=== PATIENT | male | born 1955 | race Caucasian/White ===

== ENCOUNTER 2023-04-09 09:28 | Outpatient (RCR) | payer MEDICARE, OTHER, SELFPAY | END 2023-04-09 23:59 | disposition home or self-care (01) | LOC: RPT 09:28 | PROVIDERS: ATTENDING PHYSICIAN Otolaryngology; PRIMARYCARE PHYSICIAN Family Medicine | DX: C32.9 Malignant neoplasm of larynx, unspecified (principal); R13.12 Dysphagia, oropharyngeal phase; C34.90 Malignant neoplasm of unspecified part of unspecified bronchus or lung; Z93.1 Gastrostomy status; Z93.0 Tracheostomy status; Z90.02 Acquired absence of larynx; Z85.46 Personal history of malignant neoplasm of prostate | CPT/HCPCS: 92526 ==

== ENCOUNTER 2023-05-06 09:32 | Outpatient (RCR) | payer MEDICARE, OTHER, SELFPAY | END 2023-05-06 23:59 | disposition home or self-care (01) | LOC: RPT 09:32 | PROVIDERS: ATTENDING PHYSICIAN Otolaryngology; PRIMARYCARE PHYSICIAN Family Medicine | DX: C32.9 Malignant neoplasm of larynx, unspecified (principal); R13.12 Dysphagia, oropharyngeal phase; C34.90 Malignant neoplasm of unspecified part of unspecified bronchus or lung; Z93.1 Gastrostomy status; Z93.0 Tracheostomy status; Z90.02 Acquired absence of larynx; Z85.46 Personal history of malignant neoplasm of prostate | CPT/HCPCS: 92526 ==

== ENCOUNTER → 2023-06-23 10:29 | Outpatient (REF) | payer MEDICARE, OTHER, SELFPAY ==
[2023-06-23 11:11] LABS: % Basophils 0.3 % (0-2); % Eosinophils 9.8 % (0-6); % Immature Granulocytes 0.2 % (0-0.5); % Lymphocytes 16.2 % (20.5-51.1); % Monocytes 7.3 % (1.7-9.3); % Neutrophils 66.2 % (42.2-75.2); Absolute Eosinophils 0.6 10^3/uL (0-0.7); Absolute Monocytes 0.5 10^3/uL (0.1-0.6); Absolute Neutrophils 4.2 10^3/uL (1.4-6.5); Hematocrit 41.8 % (39.0-52.0); Hemoglobin 14.7 g/dL (13.0-18.0); Mean Corp Hgb Conc. 35.2 g/dL (33.0-37.0); Mean Corpuscular Hgb 34.2 pg (27.0-31.0); Mean Corpuscular Volume 97.2 fL (80.0-94.0); Mean Platelet Volume 10.1 fL (7.4-10.4); Nucleated Red Blood Cells % 0 % (-); Platelet Count 149 10^3/uL (130-400); Red Cell Dist. Width 12.9 % (11.5-14.5); White Blood Cell Count 6.3 10^3/uL (4.8-10.8)
[2023-06-23 12:22] LABS: ALT (SGPT) 26 U/L (0-50); AST (SGOT) 32 U/L (17-59); Alkaline Phosphatase 51 U/L (38-126); Blood Urea Nitrogen 28 mg/dl (9-20); Carbon Dioxide 34 mmol/L (22-30); Chloride 99 mmol/L (98-107); Glucose 115 mg/dl (70-99); Potassium 4.3 mmol/L (3.5-5.1); Sodium 138 mmol/L (135-145); Total Bilirubin 0.4 mg/dl (0.2-1.3); Total Protein 5.2 g/dl (6.3-8.2); eGFR > 60.00
[2023-06-23 12:52] LABS: TSH Reflex To Free T4 2.65 uIU/ml (0.47-4.68)
== END ==
LOC: REG 10:29
PROVIDERS: ATTENDING PHYSICIAN Internal Medicine Hematology & Oncology; FAMILY PHYSICIAN Family Medicine
DX: C76.0 Malignant neoplasm of head, face and neck (principal); C77.0 Secondary and unspecified malignant neoplasm of lymph nodes of head, face and neck; E03.9 Hypothyroidism, unspecified
CPT/HCPCS: 36415; 80053; 84443; 85025

== ENCOUNTER 2023-07-02 09:46 | Outpatient (RCR) | payer MEDICARE, OTHER, SELFPAY | END 2023-07-02 23:59 | disposition home or self-care (01) | LOC: RPT 09:46 | PROVIDERS: ATTENDING PHYSICIAN Otolaryngology; PRIMARYCARE PHYSICIAN Family Medicine | DX: C32.9 Malignant neoplasm of larynx, unspecified (principal); R13.12 Dysphagia, oropharyngeal phase; C34.90 Malignant neoplasm of unspecified part of unspecified bronchus or lung; Z93.1 Gastrostomy status; Z93.0 Tracheostomy status; Z90.02 Acquired absence of larynx; Z85.46 Personal history of malignant neoplasm of prostate | CPT/HCPCS: 92526 ==

== ENCOUNTER 2023-07-30 10:57 | Outpatient (RCR) | payer MEDICARE, OTHER, SELFPAY | END 2023-07-30 23:59 | disposition home or self-care (01) | LOC: RPT 10:57 | PROVIDERS: ATTENDING PHYSICIAN Otolaryngology; PRIMARYCARE PHYSICIAN Family Medicine | DX: C32.9 Malignant neoplasm of larynx, unspecified (principal); R13.12 Dysphagia, oropharyngeal phase; C34.90 Malignant neoplasm of unspecified part of unspecified bronchus or lung; M62.81 Muscle weakness (generalized); Z93.1 Gastrostomy status; Z93.0 Tracheostomy status; Z90.02 Acquired absence of larynx; Z85.46 Personal history of malignant neoplasm of prostate | CPT/HCPCS: 36415; 80053; 84443; 85025; 92526 ==

== ENCOUNTER → 2023-08-03 12:37 | Outpatient (REF) | payer MEDICARE, OTHER, SELFPAY ==
[2023-08-03 13:22] LABS: % Basophils 0.3 % (0-2); % Eosinophils 12.5 % (0-6); % Immature Granulocytes 0.2 % (0-0.5); % Lymphocytes 15.2 % (20.5-51.1); % Monocytes 7.2 % (1.7-9.3); % Neutrophils 64.6 % (42.2-75.2); Absolute Eosinophils 0.8 10^3/uL (0-0.7); Absolute Monocytes 0.5 10^3/uL (0.1-0.6); Hematocrit 42.5 % (39.0-52.0); Hemoglobin 14.4 g/dL (13.0-18.0); Mean Corp Hgb Conc. 33.9 g/dL (33.0-37.0); Mean Corpuscular Hgb 33.4 pg (27.0-31.0); Mean Corpuscular Volume 98.6 fL (80.0-94.0); Mean Platelet Volume 10.4 fL (7.4-10.4); Nucleated Red Blood Cells % 0 % (-); Platelet Count 164 10^3/uL (130-400); Red Blood Cell Count 4.31 10^6/uL (4.70-6.10); Red Cell Dist. Width 12.8 % (11.5-14.5); White Blood Cell Count 6.3 10^3/uL (4.8-10.8)
[2023-08-03 14:12] LABS: ALT (SGPT) 27 U/L (0-50); AST (SGOT) 34 U/L (17-59); Albumin 3.3 g/dl (3.5-5.0); Alkaline Phosphatase 47 U/L (38-126); Blood Urea Nitrogen 28 mg/dl (9-20); Calcium 9.3 mg/dl (8.4-10.2); Carbon Dioxide 35 mmol/L (22-30); Chloride 99 mmol/L (98-107); Glucose 100 mg/dl (70-99); Sodium 138 mmol/L (135-145); Total Bilirubin 0.4 mg/dl (0.2-1.3); Total Protein 5.4 g/dl (6.3-8.2); eGFR > 60.00
[2023-08-03 14:18] LABS: TSH Reflex To Free T4 3.15 uIU/ml (0.47-4.68)
== END ==
LOC: REG 12:37
PROVIDERS: ATTENDING PHYSICIAN Internal Medicine Hematology & Oncology; FAMILY PHYSICIAN Family Medicine
DX: C76.0 Malignant neoplasm of head, face and neck (principal); C77.0 Secondary and unspecified malignant neoplasm of lymph nodes of head, face and neck; Z79.899 Other long term (current) drug therapy; E03.9 Hypothyroidism, unspecified
CPT/HCPCS: 36415; 80053; 84443; 85025

== ENCOUNTER 2023-08-04 03:10 | Emergency (ER) | payer MEDICARE, OTHER, SELFPAY ==
[2023-08-04 03:16] VITALS: BP 110/60
--- NOTE | 2023-08-04 06:18 | ED.GENMED ---
History of Present Illness
General
Chief Complaint: Catheter/Tube Problem
Source: patient, records and spouse
Exam Limitations: none
Time Seen by Provider: 08/04/23 06:06
Nursing documentation reviewed up to this point in time: agreed with
Travel History
Have you had any contact with someone who has COVID-19?: No
Do you have any symptoms of coronavirus? Fever > 100 degrees, chills, cough, shortness of breath, sore throat, loss of taste or smell, muscle aches, or headache?: No
History of Present Illness
History of Present Illness:
68-year-old male with history as documented including laryngeal cancer with chronic G-tube who presents for evaluation after his G-tube fell out. Patient states that he tried to do a feeding last night and when he removed his abdominal wrap G-tube
fell out. Last replaced 6 months ago but it was initially placed over 2 years ago. He presents with his 24 [place] G-tube�balloon appears to have ruptured. He has no complaints.
Past History
Past History
ED Past Medical History: Asthma, Cancer (Prostate) and Hypercholesterolemia
ED Past Surgical History: Urological
Social History
Tobacco: Former smoker
Alcohol: Other
Drug: None
Personal:
Living: with family
Employment: Not employed
Family History
Family History: Other
Review of Systems
Review of Systems
All Other Systems: ROS reviewed and negative except as documented in HPI and ROS
ABD/GI: Reports other (G-tube displaced)
Phy Exam
Physical Exam
Physical Exam:
General: Well appearing and non-toxic
HEENT: protecting airway
Neck: appears supple
CV: No evidence of cyanosis
Resp: No accessory muscle use
Abd: Non-distended, nontender, G-tube tract upper abdomen no leakage or drainage
Extremities: No deformities
Neuro: Alert
Psych: Normal affect
Skin: Intact
Scores
Heart Failure Risk
Heart Failure Risk Score: Not Applicable
Heart Score for Chest Pain Patients
STEMI patient?: Not applicable
Withdrawal Assessment of Alcohol
Withdrawal Assessment Completed?: Not applicable
Course
Orders/Labs/Results
Orders:
Orders
08/04/23 06:18
Tube Check [CR Cont Inj Eval Tube(by Rad)] Urgent
Comment:
Reason For Exam: g tube check
Vital Signs
Initial and Last Documented VS:
Initial Vital Signs
Temp Pulse Resp BP Pulse Ox
37.1 C 77 18 110/60 97
08/04/23 03:16 08/04/23 03:16 08/04/23 03:16 08/04/23 03:16 08/04/23 03:16
Last Documented Vital Signs
Temp Pulse Resp BP Pulse Ox
37.1 C 77 18 110/60 97
08/04/23 03:16 08/04/23 03:16 08/04/23 03:16 08/04/23 03:16 08/04/23 03:16
Procedures
Other
Indication for procedure:: G tube displaced
Procedure completed by: Manuelito Sullivan MD
Additional Procedure:
Consent: Verbal consent obtained.
Risks and benefits: risks, benefits and alternatives were discussed
Consent given by: patient
Patient understanding: patient states understanding of the procedure being performed
Patient consent: the patient understanding of the procedure matches consent given
Patient identity confirmed: arm band
Time out: Immediately prior to procedure a 'time out' was called to verify the correct patient, procedure, equipment, arch support technician and site/side marked as required.
Location details: abdomen
Procedure: using gentle pressure, new g-tube was placed with normal saline injected afterward to fill balloon port
Results: KUB with contrast confirms proper placement
Complication: Tolerated well without complication.
MDM/Problems Addressed
Differential Diagnosis Includes:
Displaced G-tube
MDM/Problems Addressed:
68-year-old male with chronic G-tube presents after it fell out last night. Replaced as documented procedure note without issue�24 [place] G-tube. X-ray for tube check confirms appropriate placement. Discharge.
Chronic conditions affecting care:
Laryngeal cancer with chronic G-tube�presents with G-tube displacement
*Radiology
Radiology exam reviewed: preliminary read by ED provider
*Pulse Oximetry
Patient hypoxic: no
*Critical Care Note
Total Time (30-74mins, 75-104mins- exclusive of procedures): Not Applicable
Data Reviewed
Review of Other/Old Records Reveals: Records
Source: patient and spouse
ED Attending Note
-
Portions of this chart may have been created with voice recognition software.� Occasional wrong word or��sound alike� substitutions may have occurred due to the inherent limitations of voice recognition software.
Discharge Plan
Departure
Patient Disposition: Home (Routine Discharge)
Date of Disposition: 08/04/23
Time of Disposition: 06:50
Patient with high blood pressure during this ER visit?: No
Discharge Problem:
Complication of gastrostomy tube
Instructions: How to Care for Your Gastrostomy Tube
Prescriptions:
No Action
atorvastatin 20 MG tablet
20 mg feeding tube QPM 30 Days Qty: 30 0RF
carvedilol 3.125 MG tablet
3.125 mg feeding tube BID 30 Days Qty: 60 0RF
aspirin 81 MG tablet,chewable
81 mg feeding tube DAILY 100 Days Qty: 100 0RF
Lactobac 2-Bifido 1-S. therm [High Potency Probiotic] 1 CAP capsule
1 cap feeding tube DAILY 30 Days Qty: 30 0RF
cetirizine [Zyrtec] 10 MG tablet
10 mg feeding tube DAILYPRN PRN (Reason: seasonal allergy)
acetaminophen 650 MG/20.3 ML solution
320 mg feeding tube TIDPRN PRN (Reason: pain)
Referrals:
Salvador Hernandez MD [Family Provider] - Follow up in 5-7 days
Activity Restrictions/Additional Instructions:
Thank you for visiting the Emergency Department at [facility].
1. Please schedule a follow up appointment as directed. Call first thing tomorrow morning to make an appointment.
2. If indicated, please take your medications as instructed and indicated on discharge paperwork.
3. If any of your symptoms do not improve, or persist, or become more severe within 6-12 hours, please return to the emergency department for further care.
4. Please return to the emergency department if you develop a headache, neck pain/stiffness, fever greater than 100.4F, chest pain, shortness of breath, persistent nausea, vomiting, slurred speech, difficulty walking, numbness/tingling, weakness,
signs of infection or any other symptoms that are worrisome to you.
Please call [phone] if you have any questions.
Interventions
Interventions:
*Risk Screen - Suicide Last Done: 08/04/23 03:16
*General Assessment Last Done: 08/04/23 03:16
*Neglect/Abuse Screening Last Done: 08/04/23 03:16
ED- Fall Risk Assessment Last Done: 08/04/23 05:04
*ED COVID-19 Vaccine History Last Done: 08/04/23 05:04
QW-Wztryz-Hlhkgjjgmo Assessment Last Done: 08/04/23 05:04
ED-Male Genitourinary Assessment Last Done: 08/04/23 05:05
Discharge Date and Time
Print Language: LITHUANIAN
== END 2023-08-04 06:50 | disposition home or self-care (01) ==
LOC: EMR 03:10
PROVIDERS: EMERGENCY PHYSICIAN Emergency Medicine; FAMILY PHYSICIAN Family Medicine
DX: K94.23 Gastrostomy malfunction (principal); C32.9 Malignant neoplasm of larynx, unspecified; Z87.891 Personal history of nicotine dependence
CPT/HCPCS: 99284; 49465

== ENCOUNTER → 2023-08-19 12:55 | Outpatient (REF) | payer MEDICARE, OTHER, SELFPAY | LOC: RAD 12:55 | PROVIDERS: ATTENDING PHYSICIAN Internal Medicine Hematology & Oncology; FAMILY PHYSICIAN Family Medicine | DX: C76.0 Malignant neoplasm of head, face and neck (principal) | CPT/HCPCS: 71260; 74177; Q9967 ==

== ENCOUNTER → 2023-08-24 11:00 | Outpatient (REF) | payer MEDICARE, OTHER, SELFPAY ==
[2023-08-24 11:57] LABS: % Basophils 0.3 % (0-2); % Eosinophils 8.7 % (0-6); % Immature Granulocytes 0.1 % (0-0.5); % Lymphocytes 12.6 % (20.5-51.1); % Monocytes 6.3 % (1.7-9.3); Absolute Eosinophils 0.6 10^3/uL (0-0.7); Absolute Lymphocytes 0.9 10^3/uL (1.2-3.4); Absolute Monocytes 0.5 10^3/uL (0.1-0.6); Absolute Neutrophils 5.2 10^3/uL (1.4-6.5); Hematocrit 43.6 % (39.0-52.0); Hemoglobin 15.1 g/dL (13.0-18.0); Mean Corp Hgb Conc. 34.6 g/dL (33.0-37.0); Mean Corpuscular Volume 98.2 fL (80.0-94.0); Mean Platelet Volume 10.6 fL (7.4-10.4); Nucleated Red Blood Cells % 0 % (-); Platelet Count 168 10^3/uL (130-400); Red Blood Cell Count 4.44 10^6/uL (4.70-6.10); White Blood Cell Count 7.2 10^3/uL (4.8-10.8)
[2023-08-24 14:29] LABS: ALT (SGPT) 28 U/L (0-50); AST (SGOT) 36 U/L (17-59); Albumin 3.5 g/dl (3.5-5.0); Alkaline Phosphatase 62 U/L (38-126); Blood Urea Nitrogen 31 mg/dl (9-20); Calcium 9.2 mg/dl (8.4-10.2); Carbon Dioxide 32 mmol/L (22-30); Chloride 100 mmol/L (98-107); Glucose 91 mg/dl (70-99); Potassium 3.9 mmol/L (3.5-5.1); Sodium 139 mmol/L (135-145); Total Bilirubin 0.4 mg/dl (0.2-1.3); Total Protein 5.6 g/dl (6.3-8.2); eGFR > 60.00
[2023-08-24 14:48] LABS: TSH Reflex To Free T4 3.67 uIU/ml (0.47-4.68)
== END ==
LOC: REG 11:00
PROVIDERS: ATTENDING PHYSICIAN Internal Medicine Hematology & Oncology; FAMILY PHYSICIAN Family Medicine
DX: C76.0 Malignant neoplasm of head, face and neck (principal); C77.0 Secondary and unspecified malignant neoplasm of lymph nodes of head, face and neck; Z79.899 Other long term (current) drug therapy; E03.9 Hypothyroidism, unspecified
CPT/HCPCS: 36415; 80053; 84443; 85025

== ENCOUNTER 2023-08-27 11:53 | Outpatient (RCR) | payer MEDICARE, OTHER, SELFPAY | END 2023-08-27 23:59 | disposition home or self-care (01) | LOC: RPT 11:53 | PROVIDERS: ATTENDING PHYSICIAN Otolaryngology; PRIMARYCARE PHYSICIAN Family Medicine | DX: C32.9 Malignant neoplasm of larynx, unspecified (principal); R13.12 Dysphagia, oropharyngeal phase; C34.90 Malignant neoplasm of unspecified part of unspecified bronchus or lung; M62.81 Muscle weakness (generalized); Z93.1 Gastrostomy status; Z93.0 Tracheostomy status; Z90.02 Acquired absence of larynx; Z85.46 Personal history of malignant neoplasm of prostate | CPT/HCPCS: 92526 ==

== ENCOUNTER 2023-10-01 11:58 | Outpatient (RCR) | payer MEDICARE, OTHER, SELFPAY | END 2023-10-01 23:59 | disposition home or self-care (01) | LOC: RPT 11:58 | PROVIDERS: ATTENDING PHYSICIAN Otolaryngology; PRIMARYCARE PHYSICIAN Family Medicine | DX: C32.9 Malignant neoplasm of larynx, unspecified (principal); R13.12 Dysphagia, oropharyngeal phase; C34.90 Malignant neoplasm of unspecified part of unspecified bronchus or lung; M62.81 Muscle weakness (generalized); Z93.1 Gastrostomy status; Z93.0 Tracheostomy status; Z90.02 Acquired absence of larynx; Z85.46 Personal history of malignant neoplasm of prostate | CPT/HCPCS: 80053; 85025; 86376; 86800; 92526 ==

== ENCOUNTER → 2023-10-05 09:56 | Outpatient (REF) | payer MEDICARE, OTHER, SELFPAY ==
[2023-10-05 11:11] LABS: % Basophils 0.3 % (0-2); % Eosinophils 8.5 % (0-6); % Immature Granulocytes 0.2 % (0-0.5); % Lymphocytes 14.5 % (20.5-51.1); % Monocytes 6.2 % (1.7-9.3); % Neutrophils 70.3 % (42.2-75.2); Absolute Eosinophils 0.6 10^3/uL (0-0.7); Absolute Monocytes 0.4 10^3/uL (0.1-0.6); Absolute Neutrophils 4.6 10^3/uL (1.4-6.5); Hemoglobin 15.5 g/dL (13.0-18.0); Mean Corp Hgb Conc. 34.4 g/dL (33.0-37.0); Mean Corpuscular Hgb 34.1 pg (27.0-31.0); Mean Corpuscular Volume 98.9 fL (80.0-94.0); Mean Platelet Volume 10.2 fL (7.4-10.4); Nucleated Red Blood Cells % 0 % (-); Platelet Count 150 10^3/uL (130-400); Red Blood Cell Count 4.55 10^6/uL (4.70-6.10); Red Cell Dist. Width 12.3 % (11.5-14.5); White Blood Cell Count 6.6 10^3/uL (4.8-10.8)
[2023-10-05 11:52] LABS: ALT (SGPT) 23 U/L (0-50); AST (SGOT) 32 U/L (17-59); Albumin 3.6 g/dl (3.5-5.0); Alkaline Phosphatase 51 U/L (38-126); Blood Urea Nitrogen 25 mg/dl (9-20); Calcium 9.5 mg/dl (8.4-10.2); Carbon Dioxide 33 mmol/L (22-30); Chloride 102 mmol/L (98-107); Glucose 89 mg/dl (70-99); Potassium 4.9 mmol/L (3.5-5.1); Sodium 139 mmol/L (135-145); Total Bilirubin 0.4 mg/dl (0.2-1.3); Total Protein 5.7 g/dl (6.3-8.2); eGFR > 60.00
[2023-10-05 12:21] LABS: TSH Reflex To Free T4 2.88 uIU/ml (0.47-4.68)
== END ==
LOC: REG 09:56
PROVIDERS: ATTENDING PHYSICIAN Internal Medicine Hematology & Oncology
DX: C76.0 Malignant neoplasm of head, face and neck (principal); C77.0 Secondary and unspecified malignant neoplasm of lymph nodes of head, face and neck; Z79.899 Other long term (current) drug therapy; E03.9 Hypothyroidism, unspecified
CPT/HCPCS: 36415; 80053; 84443; 85025

== ENCOUNTER → 2023-10-26 09:19 | Outpatient (REF) | payer MEDICARE, OTHER, SELFPAY ==
[2023-10-26 10:10] LABS: % Basophils 0.3 % (0-2); % Eosinophils 10.1 % (0-6); % Immature Granulocytes 0.2 % (0-0.5); % Lymphocytes 13.6 % (20.5-51.1); % Monocytes 7.3 % (1.7-9.3); % Neutrophils 68.5 % (42.2-75.2); Absolute Eosinophils 0.7 10^3/uL (0-0.7); Absolute Lymphocytes 0.9 10^3/uL (1.2-3.4); Absolute Monocytes 0.5 10^3/uL (0.1-0.6); Absolute Neutrophils 4.5 10^3/uL (1.4-6.5); Hematocrit 42.8 % (39.0-52.0); Hemoglobin 14.8 g/dL (13.0-18.0); Mean Corp Hgb Conc. 34.6 g/dL (33.0-37.0); Mean Corpuscular Hgb 32.8 pg (27.0-31.0); Mean Corpuscular Volume 94.9 fL (80.0-94.0); Nucleated Red Blood Cells % 0 % (-); Platelet Count 161 10^3/uL (130-400); Red Blood Cell Count 4.51 10^6/uL (4.70-6.10); Red Cell Dist. Width 12.3 % (11.5-14.5); White Blood Cell Count 6.5 10^3/uL (4.8-10.8)
[2023-10-26 10:44] LABS: ALT (SGPT) 21 U/L (0-50); AST (SGOT) 32 U/L (17-59); Albumin 3.5 g/dl (3.5-5.0); Alkaline Phosphatase 53 U/L (38-126); Blood Urea Nitrogen 29 mg/dl (9-20); Calcium 9.5 mg/dl (8.4-10.2); Carbon Dioxide 33 mmol/L (22-30); Chloride 102 mmol/L (98-107); Glucose 71 mg/dl (70-99); Potassium 5.1 mmol/L (3.5-5.1); Sodium 141 mmol/L (135-145); Total Bilirubin 0.4 mg/dl (0.2-1.3); Total Protein 5.5 g/dl (6.3-8.2); eGFR > 60.00
[2023-10-26 11:11] LABS: TSH Reflex To Free T4 2.19 uIU/ml (0.47-4.68)
== END ==
LOC: REG 09:19
PROVIDERS: ATTENDING PHYSICIAN Internal Medicine Hematology & Oncology; FAMILY PHYSICIAN Family Medicine
DX: C76.0 Malignant neoplasm of head, face and neck (principal); C77.0 Secondary and unspecified malignant neoplasm of lymph nodes of head, face and neck; Z79.899 Other long term (current) drug therapy; E03.9 Hypothyroidism, unspecified
CPT/HCPCS: 36415; 80053; 84443; 85025

== ENCOUNTER 2023-10-28 12:17 | Outpatient (RCR) | payer MEDICARE, OTHER, SELFPAY | END 2023-10-28 23:59 | disposition home or self-care (01) | LOC: RPT 12:17 | PROVIDERS: ATTENDING PHYSICIAN Otolaryngology; PRIMARYCARE PHYSICIAN Family Medicine | DX: C32.9 Malignant neoplasm of larynx, unspecified (principal); R13.12 Dysphagia, oropharyngeal phase; C34.90 Malignant neoplasm of unspecified part of unspecified bronchus or lung; M62.81 Muscle weakness (generalized); Z93.1 Gastrostomy status; Z93.0 Tracheostomy status; Z90.02 Acquired absence of larynx; Z85.46 Personal history of malignant neoplasm of prostate | CPT/HCPCS: 92526 ==

== ENCOUNTER → 2023-11-13 09:01 | Outpatient (REF) | payer MEDICARE, OTHER, SELFPAY ==
[2023-11-13 09:54] LABS: % Basophils 0.4 % (0-2); % Eosinophils 11.1 % (0-6); % Immature Granulocytes 0.2 % (0-0.5); % Lymphocytes 14.7 % (20.5-51.1); % Monocytes 7.7 % (1.7-9.3); % Neutrophils 65.9 % (42.2-75.2); Absolute Eosinophils 0.6 10^3/uL (0-0.7); Absolute Lymphocytes 0.8 10^3/uL (1.2-3.4); Absolute Monocytes 0.4 10^3/uL (0.1-0.6); Absolute Neutrophils 3.8 10^3/uL (1.4-6.5); Hematocrit 43.6 % (39.0-52.0); Hemoglobin 15.2 g/dL (13.0-18.0); Mean Corp Hgb Conc. 34.9 g/dL (33.0-37.0); Mean Corpuscular Hgb 33.4 pg (27.0-31.0); Mean Corpuscular Volume 95.8 fL (80.0-94.0); Nucleated Red Blood Cells % 0 % (-); Platelet Count 154 10^3/uL (130-400); Red Blood Cell Count 4.55 10^6/uL (4.70-6.10); Red Cell Dist. Width 12.6 % (11.5-14.5); White Blood Cell Count 5.7 10^3/uL (4.8-10.8)
[2023-11-13 10:33] LABS: ALT (SGPT) 24 U/L (0-50); AST (SGOT) 38 U/L (17-59); Albumin 3.5 g/dl (3.5-5.0); Alkaline Phosphatase 49 U/L (38-126); Blood Urea Nitrogen 27 mg/dl (9-20); Calcium 9.4 mg/dl (8.4-10.2); Carbon Dioxide 34 mmol/L (22-30); Chloride 102 mmol/L (98-107); Glucose 71 mg/dl (70-99); Potassium 5.2 mmol/L (3.5-5.1); Sodium 140 mmol/L (135-145); Total Bilirubin 0.6 mg/dl (0.2-1.3); Total Protein 5.7 g/dl (6.3-8.2); eGFR > 60.00
[2023-11-13 11:01] LABS: TSH Reflex To Free T4 2.93 uIU/ml (0.47-4.68)
== END ==
LOC: REG 09:01
PROVIDERS: ATTENDING PHYSICIAN Internal Medicine Hematology & Oncology; FAMILY PHYSICIAN Family Medicine
DX: C76.0 Malignant neoplasm of head, face and neck (principal); C77.0 Secondary and unspecified malignant neoplasm of lymph nodes of head, face and neck; Z79.899 Other long term (current) drug therapy; E03.9 Hypothyroidism, unspecified
CPT/HCPCS: 36415; 80053; 84443; 85025

== ENCOUNTER 2023-11-17 12:00 | Outpatient (RCR) | payer MEDICARE, OTHER, SELFPAY | END 2023-11-17 23:59 | disposition home or self-care (01) | LOC: RPT 12:00 | PROVIDERS: ATTENDING PHYSICIAN Otolaryngology; PRIMARYCARE PHYSICIAN Family Medicine | DX: C32.9 Malignant neoplasm of larynx, unspecified (principal); R13.12 Dysphagia, oropharyngeal phase; C34.90 Malignant neoplasm of unspecified part of unspecified bronchus or lung; M62.81 Muscle weakness (generalized); Z93.1 Gastrostomy status; Z93.0 Tracheostomy status; Z90.02 Acquired absence of larynx; Z85.46 Personal history of malignant neoplasm of prostate | CPT/HCPCS: 92526 ==

== ENCOUNTER → 2023-12-18 09:46 | Outpatient (REF) | payer MEDICARE, OTHER, SELFPAY ==
[2023-12-18 10:28] LABS: % Basophils 0.2 % (0-2); % Eosinophils 8.4 % (0-6); % Immature Granulocytes 0.2 % (0-0.5); % Lymphocytes 16.5 % (20.5-51.1); % Monocytes 8.1 % (1.7-9.3); % Neutrophils 66.6 % (42.2-75.2); Absolute Eosinophils 0.4 10^3/uL (0-0.7); Absolute Lymphocytes 0.8 10^3/uL (1.2-3.4); Absolute Monocytes 0.4 10^3/uL (0.1-0.6); Absolute Neutrophils 3.3 10^3/uL (1.4-6.5); Hematocrit 41.3 % (39.0-52.0); Hemoglobin 14.9 g/dL (13.0-18.0); Mean Corp Hgb Conc. 36.1 g/dL (33.0-37.0); Mean Corpuscular Hgb 34.3 pg (27.0-31.0); Mean Corpuscular Volume 95.2 fL (80.0-94.0); Mean Platelet Volume 9.2 fL (7.4-10.4); Nucleated Red Blood Cells % 0 % (-); Platelet Count 155 10^3/uL (130-400); Red Blood Cell Count 4.34 10^6/uL (4.70-6.10); Red Cell Dist. Width 12.4 % (11.5-14.5); White Blood Cell Count 4.9 10^3/uL (4.8-10.8)
[2023-12-18 11:29] LABS: ALT (SGPT) 19 U/L (0-50); AST (SGOT) 34 U/L (17-59); Albumin 3.5 g/dl (3.5-5.0); Alkaline Phosphatase 53 U/L (38-126); Blood Urea Nitrogen 18 mg/dl (9-20); Calcium 9.3 mg/dl (8.4-10.2); Carbon Dioxide 31 mmol/L (22-30); Chloride 103 mmol/L (98-107); Glucose 76 mg/dl (70-99); Potassium 3.8 mmol/L (3.5-5.1); Sodium 137 mmol/L (135-145); Total Bilirubin 0.6 mg/dl (0.2-1.3); Total Protein 5.6 g/dl (6.3-8.2); eGFR > 60.00
[2023-12-18 11:56] LABS: TSH Reflex To Free T4 3.25 uIU/ml (0.47-4.68)
== END ==
LOC: REG 09:46
PROVIDERS: ATTENDING PHYSICIAN Internal Medicine Hematology & Oncology; FAMILY PHYSICIAN Family Medicine
DX: C76.0 Malignant neoplasm of head, face and neck (principal); C77.0 Secondary and unspecified malignant neoplasm of lymph nodes of head, face and neck; Z79.899 Other long term (current) drug therapy; E03.9 Hypothyroidism, unspecified
CPT/HCPCS: 36415; 80053; 84443; 85025

== ENCOUNTER 2023-12-22 15:10 | Outpatient (RCR) | payer MEDICARE, OTHER, SELFPAY | END 2023-12-22 23:59 | disposition home or self-care (01) | LOC: RPT 15:10 | PROVIDERS: ATTENDING PHYSICIAN Otolaryngology; PRIMARYCARE PHYSICIAN Family Medicine | DX: C32.9 Malignant neoplasm of larynx, unspecified (principal); R13.12 Dysphagia, oropharyngeal phase; C34.90 Malignant neoplasm of unspecified part of unspecified bronchus or lung; M62.81 Muscle weakness (generalized); Z93.1 Gastrostomy status; Z93.0 Tracheostomy status; Z90.02 Acquired absence of larynx; Z85.46 Personal history of malignant neoplasm of prostate | CPT/HCPCS: 92526 ==

== ENCOUNTER → 2024-01-11 10:50 | Outpatient (REF) | payer MEDICARE, OTHER, SELFPAY ==
[2024-01-11 11:49] LABS: % Basophils 0.3 % (0-2); % Eosinophils 5.7 % (0-6); % Immature Granulocytes 0.3 % (0-0.5); % Lymphocytes 11.1 % (20.5-51.1); % Monocytes 8.2 % (1.7-9.3); % Neutrophils 74.4 % (42.2-75.2); Absolute Eosinophils 0.4 10^3/uL (0-0.7); Absolute Lymphocytes 0.7 10^3/uL (1.2-3.4); Absolute Monocytes 0.6 10^3/uL (0.1-0.6); Hematocrit 41.3 % (39.0-52.0); Hemoglobin 14.1 g/dL (13.0-18.0); Mean Corp Hgb Conc. 34.1 g/dL (33.0-37.0); Mean Corpuscular Hgb 32.1 pg (27.0-31.0); Mean Corpuscular Volume 94.1 fL (80.0-94.0); Nucleated Red Blood Cells % 0 % (-); Platelet Count 184 10^3/uL (130-400); Red Blood Cell Count 4.39 10^6/uL (4.70-6.10); Red Cell Dist. Width 12.4 % (11.5-14.5); White Blood Cell Count 6.7 10^3/uL (4.8-10.8)
[2024-01-11 12:13] LABS: ALT (SGPT) 18 U/L (0-50); AST (SGOT) 28 U/L (17-59); Albumin 3.6 g/dl (3.5-5.0); Alkaline Phosphatase 56 U/L (38-126); Blood Urea Nitrogen 27 mg/dl (9-20); Calcium 9.6 mg/dl (8.4-10.2); Carbon Dioxide 31 mmol/L (22-30); Chloride 101 mmol/L (98-107); Glucose 91 mg/dl (70-99); Potassium 4.5 mmol/L (3.5-5.1); Sodium 141 mmol/L (135-145); Total Bilirubin 0.4 mg/dl (0.2-1.3); Total Protein 5.5 g/dl (6.3-8.2); eGFR > 60.00
[2024-01-11 12:44] LABS: TSH Reflex To Free T4 2.82 uIU/ml (0.47-4.68)
== END ==
LOC: REG 10:50
PROVIDERS: ATTENDING PHYSICIAN Internal Medicine Hematology & Oncology; FAMILY PHYSICIAN Family Medicine
DX: C76.0 Malignant neoplasm of head, face and neck (principal); C77.0 Secondary and unspecified malignant neoplasm of lymph nodes of head, face and neck; Z79.899 Other long term (current) drug therapy; E03.9 Hypothyroidism, unspecified
CPT/HCPCS: 36415; 80053; 84443; 85025

== ENCOUNTER 2024-01-19 11:59 | Outpatient (RCR) | payer MEDICARE, OTHER, SELFPAY | END 2024-01-19 23:59 | disposition home or self-care (01) | LOC: RPT 11:59 | PROVIDERS: ATTENDING PHYSICIAN Otolaryngology; PRIMARYCARE PHYSICIAN Family Medicine | DX: C32.9 Malignant neoplasm of larynx, unspecified (principal); R13.12 Dysphagia, oropharyngeal phase; C34.90 Malignant neoplasm of unspecified part of unspecified bronchus or lung; M62.81 Muscle weakness (generalized); Z93.1 Gastrostomy status; Z93.0 Tracheostomy status; Z90.02 Acquired absence of larynx; Z85.46 Personal history of malignant neoplasm of prostate | CPT/HCPCS: 92526 ==

== ENCOUNTER → 2024-02-01 10:02 | Outpatient (REF) | payer MEDICARE, OTHER, SELFPAY ==
[2024-02-01 10:47] LABS: % Basophils 0.6 % (0-2); % Eosinophils 12.3 % (0-6); % Immature Granulocytes 0.2 % (0-0.5); % Lymphocytes 14.9 % (20.5-51.1); % Monocytes 6.2 % (1.7-9.3); % Neutrophils 65.8 % (42.2-75.2); Absolute Eosinophils 0.7 10^3/uL (0-0.7); Absolute Lymphocytes 0.8 10^3/uL (1.2-3.4); Absolute Monocytes 0.3 10^3/uL (0.1-0.6); Absolute Neutrophils 3.5 10^3/uL (1.4-6.5); Hemoglobin 14.7 g/dL (13.0-18.0); Mean Corp Hgb Conc. 34.2 g/dL (33.0-37.0); Mean Corpuscular Hgb 32.3 pg (27.0-31.0); Mean Corpuscular Volume 94.5 fL (80.0-94.0); Mean Platelet Volume 9.9 fL (7.4-10.4); Nucleated Red Blood Cells % 0 % (-); Platelet Count 194 10^3/uL (130-400); Red Blood Cell Count 4.55 10^6/uL (4.70-6.10); Red Cell Dist. Width 13.2 % (11.5-14.5); White Blood Cell Count 5.3 10^3/uL (4.8-10.8)
[2024-02-01 11:12] LABS: ALT (SGPT) 21 U/L (0-50); AST (SGOT) 35 U/L (17-59); Albumin 3.7 g/dl (3.5-5.0); Alkaline Phosphatase 59 U/L (38-126); Blood Urea Nitrogen 23 mg/dl (9-20); Calcium 9.5 mg/dl (8.4-10.2); Carbon Dioxide 33 mmol/L (22-30); Chloride 102 mmol/L (98-107); Glucose 85 mg/dl (70-99); Potassium 4.7 mmol/L (3.5-5.1); Sodium 140 mmol/L (135-145); Total Bilirubin 0.5 mg/dl (0.2-1.3); Total Protein 5.7 g/dl (6.3-8.2); eGFR > 60.00
[2024-02-01 11:37] LABS: TSH Reflex To Free T4 2.71 uIU/ml (0.47-4.68)
== END ==
LOC: RAD 10:02
PROVIDERS: ATTENDING PHYSICIAN Internal Medicine Hematology & Oncology; FAMILY PHYSICIAN Family Medicine
DX: C76.0 Malignant neoplasm of head, face and neck (principal); C77.0 Secondary and unspecified malignant neoplasm of lymph nodes of head, face and neck; Z79.899 Other long term (current) drug therapy; E03.9 Hypothyroidism, unspecified
CPT/HCPCS: 36415; 80053; 84443; 85025

== ENCOUNTER → 2024-02-10 07:51 | Outpatient (REF) | payer MEDICARE, OTHER, SELFPAY | LOC: RAD 07:51 | PROVIDERS: ATTENDING PHYSICIAN Internal Medicine Hematology & Oncology; FAMILY PHYSICIAN Family Medicine | DX: C76.0 Malignant neoplasm of head, face and neck (principal); C77.0 Secondary and unspecified malignant neoplasm of lymph nodes of head, face and neck | CPT/HCPCS: 71260; 74177; Q9967 ==

== ENCOUNTER 2024-02-16 12:00 | Outpatient (RCR) | payer MEDICARE, OTHER, SELFPAY | END 2024-02-16 23:59 | disposition home or self-care (01) | LOC: RPT 12:00 | PROVIDERS: ATTENDING PHYSICIAN Otolaryngology; PRIMARYCARE PHYSICIAN Family Medicine | DX: C32.9 Malignant neoplasm of larynx, unspecified (principal); R13.12 Dysphagia, oropharyngeal phase; C34.90 Malignant neoplasm of unspecified part of unspecified bronchus or lung; M62.81 Muscle weakness (generalized); Z93.1 Gastrostomy status; Z93.0 Tracheostomy status; Z90.02 Acquired absence of larynx; Z85.46 Personal history of malignant neoplasm of prostate | CPT/HCPCS: 92526 ==

== ENCOUNTER → 2024-02-17 06:19 | Day surgery (SDC) | payer MEDICARE, OTHER, SELFPAY | LOC: GI 06:19 | PROVIDERS: ATTENDING PHYSICIAN Specialist | DX: Z12.11 Encounter for screening for malignant neoplasm of colon (principal); D12.0 Benign neoplasm of cecum; D12.2 Benign neoplasm of ascending colon; D12.3 Benign neoplasm of transverse colon; K56.2 Volvulus; Z86.0101 Personal history of adenomatous and serrated colon polyps | CPT/HCPCS: 45385; 88305 ==

== ENCOUNTER → 2024-02-22 14:05 | Outpatient (REF) | payer MEDICARE, OTHER, SELFPAY ==
[2024-02-22 15:23] LABS: % Basophils 0.3 % (0-2); % Eosinophils 9.2 % (0-6); % Immature Granulocytes 0.3 % (0-0.5); % Lymphocytes 18.7 % (20.5-51.1); % Monocytes 7.5 % (1.7-9.3); Absolute Eosinophils 0.5 10^3/uL (0-0.7); Absolute Lymphocytes 1.1 10^3/uL (1.2-3.4); Absolute Monocytes 0.4 10^3/uL (0.1-0.6); Absolute Neutrophils 3.7 10^3/uL (1.4-6.5); Hematocrit 43.9 % (39.0-52.0); Hemoglobin 15.2 g/dL (13.0-18.0); Mean Corp Hgb Conc. 34.6 g/dL (33.0-37.0); Mean Corpuscular Hgb 33.7 pg (27.0-31.0); Mean Corpuscular Volume 97.3 fL (80.0-94.0); Mean Platelet Volume 10.2 fL (7.4-10.4); Nucleated Red Blood Cells % 0 % (-); Platelet Count 183 10^3/uL (130-400); Red Blood Cell Count 4.51 10^6/uL (4.70-6.10); Red Cell Dist. Width 13.1 % (11.5-14.5); White Blood Cell Count 5.7 10^3/uL (4.8-10.8)
[2024-02-22 15:42] LABS: ALT (SGPT) 21 U/L (0-50); AST (SGOT) 32 U/L (17-59); Albumin 3.9 g/dl (3.5-5.0); Alkaline Phosphatase 45 U/L (38-126); Blood Urea Nitrogen 33 mg/dl (9-20); Calcium 9.6 mg/dl (8.4-10.2); Carbon Dioxide 33 mmol/L (22-30); Chloride 99 mmol/L (98-107); Glucose 83 mg/dl (70-99); Potassium 5.3 mmol/L (3.5-5.1); Sodium 140 mmol/L (135-145); Total Bilirubin 0.3 mg/dl (0.2-1.3); Total Protein 6.1 g/dl (6.3-8.2); eGFR > 60.00
[2024-02-22 16:13] LABS: TSH Reflex To Free T4 2.98 uIU/ml (0.47-4.68)
== END ==
LOC: REG 14:05
PROVIDERS: ATTENDING PHYSICIAN Internal Medicine Hematology & Oncology; FAMILY PHYSICIAN Family Medicine
DX: C76.0 Malignant neoplasm of head, face and neck (principal); C77.0 Secondary and unspecified malignant neoplasm of lymph nodes of head, face and neck; Z79.899 Other long term (current) drug therapy; E03.9 Hypothyroidism, unspecified
CPT/HCPCS: 36415; 80053; 84443; 85025

== ENCOUNTER → 2024-03-16 16:07 | Outpatient (REF) | payer MEDICARE, OTHER, SELFPAY ==
[2024-03-16 10:14] LABS: % Basophils 0.3 % (0-2); % Eosinophils 7.4 % (0-6); % Immature Granulocytes 0.1 % (0-0.5); % Lymphocytes 10.4 % (20.5-51.1); % Monocytes 7.5 % (1.7-9.3); % Neutrophils 74.3 % (42.2-75.2); Absolute Eosinophils 0.5 10^3/uL (0-0.7); Absolute Lymphocytes 0.8 10^3/uL (1.2-3.4); Absolute Monocytes 0.6 10^3/uL (0.1-0.6); Absolute Neutrophils 5.4 10^3/uL (1.4-6.5); Hematocrit 42.5 % (39.0-52.0); Hemoglobin 14.4 g/dL (13.0-18.0); Mean Corp Hgb Conc. 33.9 g/dL (33.0-37.0); Mean Corpuscular Volume 97.5 fL (80.0-94.0); Mean Platelet Volume 9.9 fL (7.4-10.4); Platelet Count 168 10^3/uL (130-400); Red Blood Cell Count 4.36 10^6/uL (4.70-6.10); Red Cell Dist. Width 13.2 % (11.5-14.5); White Blood Cell Count 7.3 10^3/uL (4.8-10.8)
[2024-03-16 10:52] LABS: ALT (SGPT) 22 U/L (0-50); AST (SGOT) 31 U/L (17-59); Albumin 3.2 g/dl (3.5-5.0); Alkaline Phosphatase 47 U/L (38-126); Blood Urea Nitrogen 25 mg/dl (9-20); Calcium 9.1 mg/dl (8.4-10.2); Carbon Dioxide 30 mmol/L (22-30); Chloride 103 mmol/L (98-107); Glucose 99 mg/dl (70-99); Potassium 4.2 mmol/L (3.5-5.1); Sodium 142 mmol/L (135-145); Total Bilirubin 0.3 mg/dl (0.2-1.3); Total Protein 5.2 g/dl (6.3-8.2); eGFR > 60.00
[2024-03-16 11:12] LABS: TSH Reflex To Free T4 3.31 uIU/ml (0.47-4.68)
== END ==
LOC: OIDL 16:07
PROVIDERS: ATTENDING PHYSICIAN Internal Medicine Hematology & Oncology
DX: C76.0 Malignant neoplasm of head, face and neck (principal); E03.9 Hypothyroidism, unspecified
CPT/HCPCS: 80053; 84443; 85025

== ENCOUNTER 2024-03-22 08:38 | Outpatient (RCR) | payer MEDICARE, OTHER, SELFPAY | END 2024-03-22 23:59 | disposition home or self-care (01) | LOC: RPT 08:38 | PROVIDERS: ATTENDING PHYSICIAN Otolaryngology; PRIMARYCARE PHYSICIAN Family Medicine | DX: C32.9 Malignant neoplasm of larynx, unspecified (principal); R13.12 Dysphagia, oropharyngeal phase; C34.90 Malignant neoplasm of unspecified part of unspecified bronchus or lung; M62.81 Muscle weakness (generalized); Z93.1 Gastrostomy status; Z93.0 Tracheostomy status; Z90.02 Acquired absence of larynx; Z85.46 Personal history of malignant neoplasm of prostate | CPT/HCPCS: 92526 ==

== ENCOUNTER → 2024-03-28 08:33 | Outpatient (REF) | payer MEDICARE, OTHER, SELFPAY | LOC: RAD 08:33 | PROVIDERS: ATTENDING PHYSICIAN Internal Medicine Hematology & Oncology; FAMILY PHYSICIAN Family Medicine | DX: C76.0 Malignant neoplasm of head, face and neck (principal); C77.0 Secondary and unspecified malignant neoplasm of lymph nodes of head, face and neck; Z79.899 Other long term (current) drug therapy | CPT/HCPCS: 71260; Q9967 ==

== ENCOUNTER → 2024-04-05 09:32 | Outpatient (REF) | payer MEDICARE, OTHER, SELFPAY ==
[2024-04-05 11:59] LABS: % Basophils 0.3 % (0-2); % Eosinophils 5.9 % (0-6); % Immature Granulocytes 0.9 % (0-0.5); % Lymphocytes 9.8 % (20.5-51.1); % Monocytes 7.9 % (1.7-9.3); % Neutrophils 75.2 % (42.2-75.2); Absolute Eosinophils 0.5 10^3/uL (0-0.7); Absolute Immature Granulocytes 0.1 10^3/uL (0-0.05); Absolute Lymphocytes 0.8 10^3/uL (1.2-3.4); Absolute Monocytes 0.6 10^3/uL (0.1-0.6); Absolute Neutrophils 5.8 10^3/uL (1.4-6.5); Hematocrit 42.8 % (39.0-52.0); Hemoglobin 14.4 g/dL (13.0-18.0); Mean Corp Hgb Conc. 33.6 g/dL (33.0-37.0); Mean Corpuscular Volume 97.9 fL (80.0-94.0); Mean Platelet Volume 10.2 fL (7.4-10.4); Nucleated Red Blood Cells % 0 % (-); Platelet Count 186 10^3/uL (130-400); Red Blood Cell Count 4.37 10^6/uL (4.70-6.10); Red Cell Dist. Width 13.1 % (11.5-14.5); White Blood Cell Count 7.6 10^3/uL (4.8-10.8)
[2024-04-05 12:10] LABS: ALT (SGPT) 18 U/L (0-50); AST (SGOT) 23 U/L (17-59); Albumin 3.3 g/dl (3.5-5.0); Alkaline Phosphatase 49 U/L (38-126); Blood Urea Nitrogen 26 mg/dl (9-20); Carbon Dioxide 33 mmol/L (22-30); Chloride 100 mmol/L (98-107); Glucose 83 mg/dl (70-99); Potassium 4.4 mmol/L (3.5-5.1); Sodium 141 mmol/L (135-145); Total Bilirubin 0.3 mg/dl (0.2-1.3); Total Protein 5.1 g/dl (6.3-8.2); eGFR > 60.00
[2024-04-05 12:36] LABS: TSH Reflex To Free T4 4.23 uIU/ml (0.47-4.68)
== END ==
LOC: REG 09:32
PROVIDERS: ATTENDING PHYSICIAN Internal Medicine Hematology & Oncology; FAMILY PHYSICIAN Family Medicine
DX: C76.0 Malignant neoplasm of head, face and neck (principal); C77.0 Secondary and unspecified malignant neoplasm of lymph nodes of head, face and neck; Z79.899 Other long term (current) drug therapy; E03.9 Hypothyroidism, unspecified
CPT/HCPCS: 36415; 80053; 84443; 85025

== ENCOUNTER 2024-04-19 12:00 | Outpatient (RCR) | payer MEDICARE, OTHER, SELFPAY | END 2024-04-19 16:06 | disposition home or self-care (01) | LOC: RPT 12:00 | PROVIDERS: ATTENDING PHYSICIAN Otolaryngology; PRIMARYCARE PHYSICIAN Family Medicine | DX: C32.9 Malignant neoplasm of larynx, unspecified (principal); R13.12 Dysphagia, oropharyngeal phase; C34.90 Malignant neoplasm of unspecified part of unspecified bronchus or lung; M62.81 Muscle weakness (generalized); Z93.1 Gastrostomy status; Z93.0 Tracheostomy status; Z90.02 Acquired absence of larynx; Z85.46 Personal history of malignant neoplasm of prostate | CPT/HCPCS: 92526 ==

== ENCOUNTER → 2024-04-25 09:26 | Outpatient (REF) | payer MEDICARE, OTHER, SELFPAY ==
[2024-04-25 10:25] LABS: % Basophils 0.2 % (0-2); % Eosinophils 4.7 % (0-6); % Immature Granulocytes 0.2 % (0-0.5); % Lymphocytes 10.6 % (20.5-51.1); % Monocytes 5.9 % (1.7-9.3); % Neutrophils 78.4 % (42.2-75.2); Absolute Eosinophils 0.5 10^3/uL (0-0.7); Absolute Lymphocytes 1.2 10^3/uL (1.2-3.4); Absolute Monocytes 0.7 10^3/uL (0.1-0.6); Absolute Neutrophils 8.8 10^3/uL (1.4-6.5); Hematocrit 44.9 % (39.0-52.0); Hemoglobin 15.7 g/dL (13.0-18.0); Mean Corpuscular Hgb 33.4 pg (27.0-31.0); Mean Corpuscular Volume 95.5 fL (80.0-94.0); Mean Platelet Volume 9.6 fL (7.4-10.4); Nucleated Red Blood Cells % 0 % (-); Platelet Count 161 10^3/uL (130-400); Red Cell Dist. Width 12.6 % (11.5-14.5); White Blood Cell Count 11.2 10^3/uL (4.8-10.8)
[2024-04-25 11:24] LABS: ALT (SGPT) 22 U/L (0-50); AST (SGOT) 31 U/L (17-59); Albumin 3.7 g/dl (3.5-5.0); Alkaline Phosphatase 50 U/L (38-126); Blood Urea Nitrogen 24 mg/dl (9-20); Calcium 9.2 mg/dl (8.4-10.2); Carbon Dioxide 34 mmol/L (22-30); Chloride 101 mmol/L (98-107); Glucose 89 mg/dl (70-99); Potassium 4.4 mmol/L (3.5-5.1); Sodium 139 mmol/L (135-145); Total Bilirubin 0.4 mg/dl (0.2-1.3); Total Protein 5.7 g/dl (6.3-8.2); eGFR > 60.00
[2024-04-25 11:46] LABS: TSH Reflex To Free T4 3.57 uIU/ml (0.47-4.68)
== END ==
LOC: REG 09:26
PROVIDERS: ATTENDING PHYSICIAN Internal Medicine Hematology & Oncology; FAMILY PHYSICIAN Family Medicine
DX: C76.0 Malignant neoplasm of head, face and neck (principal); C77.0 Secondary and unspecified malignant neoplasm of lymph nodes of head, face and neck; Z79.899 Other long term (current) drug therapy; E03.9 Hypothyroidism, unspecified
CPT/HCPCS: 36415; 80053; 84443; 85025

== ENCOUNTER → 2024-05-16 10:06 | Outpatient (REF) | payer MEDICARE, OTHER, SELFPAY ==
[2024-05-16 11:04] LABS: % Basophils 0.2 % (0-2); % Eosinophils 6.1 % (0-6); % Immature Granulocytes 0.2 % (0-0.5); % Lymphocytes 7.6 % (20.5-51.1); % Monocytes 6.9 % (1.7-9.3); Absolute Eosinophils 0.6 10^3/uL (0-0.7); Absolute Lymphocytes 0.7 10^3/uL (1.2-3.4); Absolute Monocytes 0.6 10^3/uL (0.1-0.6); Absolute Neutrophils 7.3 10^3/uL (1.4-6.5); Hematocrit 45.7 % (39.0-52.0); Hemoglobin 15.5 g/dL (13.0-18.0); Mean Corp Hgb Conc. 33.9 g/dL (33.0-37.0); Mean Corpuscular Hgb 32.5 pg (27.0-31.0); Mean Corpuscular Volume 95.8 fL (80.0-94.0); Mean Platelet Volume 9.8 fL (7.4-10.4); Nucleated Red Blood Cells % 0 % (-); Platelet Count 169 10^3/uL (130-400); Red Blood Cell Count 4.77 10^6/uL (4.70-6.10); Red Cell Dist. Width 12.7 % (11.5-14.5); White Blood Cell Count 9.2 10^3/uL (4.8-10.8)
[2024-05-16 11:39] LABS: ALT (SGPT) 17 U/L (0-50); AST (SGOT) 26 U/L (17-59); Albumin 3.4 g/dl (3.5-5.0); Alkaline Phosphatase 56 U/L (38-126); Blood Urea Nitrogen 21 mg/dl (9-20); Calcium 8.9 mg/dl (8.4-10.2); Carbon Dioxide 36 mmol/L (22-30); Chloride 100 mmol/L (98-107); Glucose 74 mg/dl (70-99); Potassium 4.4 mmol/L (3.5-5.1); Sodium 140 mmol/L (135-145); Total Bilirubin 0.5 mg/dl (0.2-1.3); Total Protein 5.5 g/dl (6.3-8.2); eGFR > 60.00
[2024-05-16 12:05] LABS: TSH Reflex To Free T4 1.92 uIU/ml (0.47-4.68)
== END ==
LOC: REG 10:06
PROVIDERS: ATTENDING PHYSICIAN Internal Medicine Hematology & Oncology; FAMILY PHYSICIAN Family Medicine
DX: C76.0 Malignant neoplasm of head, face and neck (principal); C77.0 Secondary and unspecified malignant neoplasm of lymph nodes of head, face and neck; Z79.899 Other long term (current) drug therapy; E03.9 Hypothyroidism, unspecified
CPT/HCPCS: 36415; 80053; 84443; 85025

== ENCOUNTER → 2024-05-23 08:24 | Outpatient (REF) | payer MEDICARE, OTHER, SELFPAY | LOC: RAD 08:24 | PROVIDERS: ATTENDING PHYSICIAN Internal Medicine Hematology & Oncology; FAMILY PHYSICIAN Family Medicine | DX: C76.0 Malignant neoplasm of head, face and neck (principal); C77.0 Secondary and unspecified malignant neoplasm of lymph nodes of head, face and neck; Z79.899 Other long term (current) drug therapy; E03.9 Hypothyroidism, unspecified | CPT/HCPCS: 71260; Q9967 ==

== ENCOUNTER → 2024-06-15 11:09 | Outpatient (REF) | payer MEDICARE, OTHER, SELFPAY ==
[2024-06-15 11:10] LABS: % Basophils 0.2 % (0-2); % Eosinophils 7.6 % (0-6); % Lymphocytes 13.8 % (20.5-51.1); % Monocytes 7.1 % (1.7-9.3); % Neutrophils 71.3 % (42.2-75.2); Absolute Eosinophils 0.4 10^3/uL (0-0.7); Absolute Lymphocytes 0.8 10^3/uL (1.2-3.4); Absolute Monocytes 0.4 10^3/uL (0.1-0.6); Absolute Neutrophils 4.2 10^3/uL (1.4-6.5); Hematocrit 42.4 % (39.0-52.0); Hemoglobin 14.7 g/dL (13.0-18.0); Mean Corp Hgb Conc. 34.7 g/dL (33.0-37.0); Mean Corpuscular Hgb 33.2 pg (27.0-31.0); Mean Corpuscular Volume 95.7 fL (80.0-94.0); Mean Platelet Volume 9.3 fL (7.4-10.4); Platelet Count 154 10^3/uL (130-400); Red Blood Cell Count 4.43 10^6/uL (4.70-6.10); Red Cell Dist. Width 12.5 % (11.5-14.5); White Blood Cell Count 5.8 10^3/uL (4.8-10.8)
[2024-06-15 12:14] LABS: ALT (SGPT) 20 U/L (0-50); AST (SGOT) 30 U/L (17-59); Albumin 3.3 g/dl (3.5-5.0); Alkaline Phosphatase 54 U/L (38-126); Blood Urea Nitrogen 24 mg/dl (9-20); Calcium 8.7 mg/dl (8.4-10.2); Carbon Dioxide 28 mmol/L (22-30); Chloride 103 mmol/L (98-107); Glucose 86 mg/dl (70-99); Potassium 4.1 mmol/L (3.5-5.1); Sodium 137 mmol/L (135-145); Total Bilirubin 0.3 mg/dl (0.2-1.3); Total Protein 5.2 g/dl (6.3-8.2); eGFR > 60.00
[2024-06-15 12:43] LABS: TSH Reflex To Free T4 3.68 uIU/ml (0.47-4.68)
== END ==
LOC: OIDL 11:09
PROVIDERS: ATTENDING PHYSICIAN Internal Medicine Hematology & Oncology
DX: C76.0 Malignant neoplasm of head, face and neck (principal); C77.0 Secondary and unspecified malignant neoplasm of lymph nodes of head, face and neck; E03.9 Hypothyroidism, unspecified
CPT/HCPCS: 80053; 84443; 85025

== ENCOUNTER → 2024-07-04 10:20 | Outpatient (REF) | payer MEDICARE, OTHER, SELFPAY ==
[2024-07-04 11:26] LABS: % Basophils 0.3 % (0-2); % Eosinophils 10.4 % (0-6); % Immature Granulocytes 0.3 % (0-0.5); % Lymphocytes 13.2 % (20.5-51.1); % Monocytes 6.7 % (1.7-9.3); % Neutrophils 69.1 % (42.2-75.2); Absolute Eosinophils 0.7 10^3/uL (0-0.7); Absolute Lymphocytes 0.9 10^3/uL (1.2-3.4); Absolute Monocytes 0.4 10^3/uL (0.1-0.6); Absolute Neutrophils 4.5 10^3/uL (1.4-6.5); Hematocrit 43.9 % (39.0-52.0); Mean Corp Hgb Conc. 34.2 g/dL (33.0-37.0); Mean Corpuscular Volume 96.5 fL (80.0-94.0); Mean Platelet Volume 9.5 fL (7.4-10.4); Nucleated Red Blood Cells % 0 % (-); Platelet Count 163 10^3/uL (130-400); Red Blood Cell Count 4.55 10^6/uL (4.70-6.10); Red Cell Dist. Width 12.7 % (11.5-14.5); White Blood Cell Count 6.6 10^3/uL (4.8-10.8)
[2024-07-04 12:05] LABS: ALT (SGPT) 18 U/L (0-50); AST (SGOT) 25 U/L (17-59); Albumin 3.2 g/dl (3.5-5.0); Alkaline Phosphatase 63 U/L (38-126); Blood Urea Nitrogen 23 mg/dl (9-20); Calcium 9.2 mg/dl (8.4-10.2); Carbon Dioxide 35 mmol/L (22-30); Chloride 101 mmol/L (98-107); Glucose 79 mg/dl (70-99); Potassium 4.5 mmol/L (3.5-5.1); Sodium 139 mmol/L (135-145); Total Bilirubin 0.4 mg/dl (0.2-1.3); Total Protein 5.3 g/dl (6.3-8.2); eGFR > 60.00
[2024-07-04 12:41] LABS: TSH 1.93 uIU/ml (0.47-4.68)
== END ==
LOC: REG 10:20
PROVIDERS: ATTENDING PHYSICIAN Internal Medicine Hematology & Oncology; FAMILY PHYSICIAN Family Medicine
DX: C76.0 Malignant neoplasm of head, face and neck (principal); C77.0 Secondary and unspecified malignant neoplasm of lymph nodes of head, face and neck; Z79.899 Other long term (current) drug therapy; E03.9 Hypothyroidism, unspecified
CPT/HCPCS: 36415; 80053; 84443; 85025

== ENCOUNTER → 2024-07-25 10:25 | Outpatient (REF) | payer MEDICARE, OTHER, SELFPAY ==
[2024-07-25 10:58] LABS: % Basophils 0.3 % (0-2); % Immature Granulocytes 0.2 % (0-0.5); % Lymphocytes 13.5 % (20.5-51.1); % Monocytes 7.7 % (1.7-9.3); % Neutrophils 70.3 % (42.2-75.2); Absolute Eosinophils 0.5 10^3/uL (0-0.7); Absolute Lymphocytes 0.8 10^3/uL (1.2-3.4); Absolute Monocytes 0.5 10^3/uL (0.1-0.6); Absolute Neutrophils 4.2 10^3/uL (1.4-6.5); Hematocrit 43.9 % (39.0-52.0); Hemoglobin 15.1 g/dL (13.0-18.0); Mean Corp Hgb Conc. 34.4 g/dL (33.0-37.0); Mean Corpuscular Hgb 32.8 pg (27.0-31.0); Mean Corpuscular Volume 95.2 fL (80.0-94.0); Mean Platelet Volume 9.4 fL (7.4-10.4); Nucleated Red Blood Cells % 0 % (-); Platelet Count 160 10^3/uL (130-400); Red Blood Cell Count 4.61 10^6/uL (4.70-6.10); Red Cell Dist. Width 12.9 % (11.5-14.5)
[2024-07-25 12:46] LABS: TSH Reflex To Free T4 2.15 uIU/ml (0.47-4.68)
[2024-07-25 14:00] LABS: ALT (SGPT) 19 U/L (0-50); AST (SGOT) 30 U/L (17-59); Albumin 3.7 g/dl (3.5-5.0); Alkaline Phosphatase 64 U/L (38-126); Blood Urea Nitrogen 23 mg/dl (9-20); Calcium 9.3 mg/dl (8.4-10.2); Carbon Dioxide 36 mmol/L (22-30); Chloride 103 mmol/L (98-107); Glucose 78 mg/dl (70-99); Potassium 4.5 mmol/L (3.5-5.1); Sodium 144 mmol/L (135-145); Total Bilirubin 0.5 mg/dl (0.2-1.3); Total Protein 5.7 g/dl (6.3-8.2); eGFR > 60.00
== END ==
LOC: REG 10:25
PROVIDERS: ATTENDING PHYSICIAN Internal Medicine Hematology & Oncology; FAMILY PHYSICIAN Family Medicine
DX: C76.0 Malignant neoplasm of head, face and neck (principal); C77.0 Secondary and unspecified malignant neoplasm of lymph nodes of head, face and neck; Z79.899 Other long term (current) drug therapy; E03.9 Hypothyroidism, unspecified
CPT/HCPCS: 36415; 80053; 84443; 85025

== ENCOUNTER → 2024-08-15 09:51 | Outpatient (REF) | payer MEDICARE, OTHER, SELFPAY ==
[2024-08-15 10:50] LABS: % Basophils 0.3 % (0-2); % Eosinophils 6.8 % (0-6); % Immature Granulocytes 0.3 % (0-0.5); % Lymphocytes 15.7 % (20.5-51.1); % Monocytes 7.4 % (1.7-9.3); % Neutrophils 69.5 % (42.2-75.2); Absolute Eosinophils 0.4 10^3/uL (0-0.7); Absolute Monocytes 0.5 10^3/uL (0.1-0.6); Absolute Neutrophils 4.5 10^3/uL (1.4-6.5); Hematocrit 43.7 % (39.0-52.0); Mean Corp Hgb Conc. 34.3 g/dL (33.0-37.0); Mean Corpuscular Hgb 32.8 pg (27.0-31.0); Mean Corpuscular Volume 95.4 fL (80.0-94.0); Mean Platelet Volume 9.5 fL (7.4-10.4); Nucleated Red Blood Cells % 0 % (-); Platelet Count 179 10^3/uL (130-400); Red Blood Cell Count 4.58 10^6/uL (4.70-6.10); Red Cell Dist. Width 12.8 % (11.5-14.5); White Blood Cell Count 6.5 10^3/uL (4.8-10.8)
[2024-08-15 12:55] LABS: ALT (SGPT) 17 U/L (0-50); AST (SGOT) 25 U/L (17-59); Albumin 3.7 g/dl (3.5-5.0); Alkaline Phosphatase 61 U/L (38-126); Blood Urea Nitrogen 25 mg/dl (9-20); Calcium 9.1 mg/dl (8.4-10.2); Carbon Dioxide 31 mmol/L (22-30); Chloride 101 mmol/L (98-107); Glucose 88 mg/dl (70-99); Potassium 4.3 mmol/L (3.5-5.1); Sodium 141 mmol/L (135-145); Total Bilirubin 0.4 mg/dl (0.2-1.3); Total Protein 5.7 g/dl (6.3-8.2); eGFR > 60.00
[2024-08-15 14:24] LABS: TSH Reflex To Free T4 3.14 uIU/ml (0.47-4.68)
== END ==
LOC: REG 09:51
PROVIDERS: ATTENDING PHYSICIAN Internal Medicine Hematology & Oncology; FAMILY PHYSICIAN Family Medicine
DX: C76.0 Malignant neoplasm of head, face and neck (principal); C77.0 Secondary and unspecified malignant neoplasm of lymph nodes of head, face and neck; Z79.899 Other long term (current) drug therapy; E03.9 Hypothyroidism, unspecified
CPT/HCPCS: 36415; 80053; 84443; 85025

== ENCOUNTER → 2024-09-01 08:47 | Outpatient (REF) | payer MEDICARE, OTHER, SELFPAY | LOC: RAD 08:47 | PROVIDERS: ATTENDING PHYSICIAN Internal Medicine Hematology & Oncology; FAMILY PHYSICIAN Family Medicine | DX: C76.0 Malignant neoplasm of head, face and neck (principal) | CPT/HCPCS: 71260; 74177; Q9967 ==

== ENCOUNTER → 2024-09-05 10:02 | Outpatient (REF) | payer MEDICARE, OTHER, SELFPAY ==
[2024-09-05 10:30] LABS: % Basophils 0.4 % (0-2); % Immature Granulocytes 0.2 % (0-0.5); % Lymphocytes 16.5 % (20.5-51.1); % Monocytes 7.6 % (1.7-9.3); % Neutrophils 67.3 % (42.2-75.2); Absolute Eosinophils 0.4 10^3/uL (0-0.7); Absolute Lymphocytes 0.9 10^3/uL (1.2-3.4); Absolute Monocytes 0.4 10^3/uL (0.1-0.6); Absolute Neutrophils 3.7 10^3/uL (1.4-6.5); Hematocrit 43.8 % (39.0-52.0); Hemoglobin 15.3 g/dL (13.0-18.0); Mean Corp Hgb Conc. 34.9 g/dL (33.0-37.0); Mean Corpuscular Hgb 32.8 pg (27.0-31.0); Mean Corpuscular Volume 93.8 fL (80.0-94.0); Mean Platelet Volume 9.2 fL (7.4-10.4); Nucleated Red Blood Cells % 0 % (-); Platelet Count 150 10^3/uL (130-400); Red Blood Cell Count 4.67 10^6/uL (4.70-6.10); Red Cell Dist. Width 12.7 % (11.5-14.5); White Blood Cell Count 5.5 10^3/uL (4.8-10.8)
[2024-09-05 10:59] LABS: ALT (SGPT) 19 U/L (0-50); AST (SGOT) 29 U/L (17-59); Albumin 3.4 g/dl (3.5-5.0); Alkaline Phosphatase 48 U/L (38-126); Blood Urea Nitrogen 24 mg/dl (9-20); Calcium 9.2 mg/dl (8.4-10.2); Carbon Dioxide 32 mmol/L (22-30); Chloride 103 mmol/L (98-107); Glucose 84 mg/dl (70-99); Potassium 4.8 mmol/L (3.5-5.1); Sodium 141 mmol/L (135-145); Total Bilirubin 0.5 mg/dl (0.2-1.3); Total Protein 5.4 g/dl (6.3-8.2); eGFR > 60.00
[2024-09-05 11:27] LABS: TSH Reflex To Free T4 3.14 uIU/ml (0.47-4.68)
== END ==
LOC: REG 10:02
PROVIDERS: ATTENDING PHYSICIAN Internal Medicine Hematology & Oncology; FAMILY PHYSICIAN Family Medicine
DX: J96.01 Acute respiratory failure with hypoxia (principal)
CPT/HCPCS: 36415; 80053; 84443; 85025

== ENCOUNTER → 2024-09-27 10:52 | Outpatient (REF) | payer MEDICARE, OTHER, SELFPAY ==
[2024-09-27 12:06] LABS: % Basophils 0.3 % (0-2); % Eosinophils 6.1 % (0-6); % Immature Granulocytes 0.3 % (0-0.5); % Lymphocytes 13.8 % (20.5-51.1); % Monocytes 6.5 % (1.7-9.3); Absolute Eosinophils 0.4 10^3/uL (0-0.7); Absolute Lymphocytes 0.8 10^3/uL (1.2-3.4); Absolute Monocytes 0.4 10^3/uL (0.1-0.6); Absolute Neutrophils 4.3 10^3/uL (1.4-6.5); Hematocrit 42.1 % (39.0-52.0); Hemoglobin 14.6 g/dL (13.0-18.0); Mean Corp Hgb Conc. 34.7 g/dL (33.0-37.0); Mean Corpuscular Hgb 32.4 pg (27.0-31.0); Mean Corpuscular Volume 93.6 fL (80.0-94.0); Mean Platelet Volume 9.6 fL (7.4-10.4); Nucleated Red Blood Cells % 0 % (-); Platelet Count 165 10^3/uL (130-400); Red Cell Dist. Width 12.7 % (11.5-14.5); White Blood Cell Count 5.9 10^3/uL (4.8-10.8)
[2024-09-27 12:37] LABS: ALT (SGPT) 17 U/L (0-50); AST (SGOT) 25 U/L (17-59); Albumin 3.4 g/dl (3.5-5.0); Alkaline Phosphatase 45 U/L (38-126); Blood Urea Nitrogen 25 mg/dl (9-20); Carbon Dioxide 30 mmol/L (22-30); Chloride 106 mmol/L (98-107); Glucose 99 mg/dl (70-99); Potassium 4.3 mmol/L (3.5-5.1); Sodium 141 mmol/L (135-145); Total Bilirubin 0.3 mg/dl (0.2-1.3); Total Protein 5.3 g/dl (6.3-8.2); eGFR > 60.00
[2024-09-27 13:03] LABS: TSH Reflex To Free T4 1.89 uIU/ml (0.47-4.68)
== END ==
LOC: REG 10:52
PROVIDERS: ATTENDING PHYSICIAN Internal Medicine Hematology & Oncology; FAMILY PHYSICIAN Family Medicine
DX: C76.0 Malignant neoplasm of head, face and neck (principal); C77.0 Secondary and unspecified malignant neoplasm of lymph nodes of head, face and neck; Z79.899 Other long term (current) drug therapy; E03.9 Hypothyroidism, unspecified
CPT/HCPCS: 36415; 80053; 84443; 85025

== ENCOUNTER → 2024-10-17 10:11 | Outpatient (REF) | payer MEDICARE, OTHER, SELFPAY ==
[2024-10-17 11:19] LABS: % Basophils 0.4 % (0-2); % Eosinophils 8.7 % (0-6); % Immature Granulocytes 0.2 % (0-0.5); % Lymphocytes 17.7 % (20.5-51.1); Absolute Eosinophils 0.5 10^3/uL (0-0.7); Absolute Monocytes 0.4 10^3/uL (0.1-0.6); Absolute Neutrophils 3.6 10^3/uL (1.4-6.5); Hematocrit 47.5 % (39.0-52.0); Hemoglobin 16.2 g/dL (13.0-18.0); Mean Corp Hgb Conc. 34.1 g/dL (33.0-37.0); Mean Corpuscular Hgb 32.4 pg (27.0-31.0); Mean Platelet Volume 9.8 fL (7.4-10.4); Nucleated Red Blood Cells % 0 % (-); Platelet Count 178 10^3/uL (130-400); Red Cell Dist. Width 13.1 % (11.5-14.5); White Blood Cell Count 5.4 10^3/uL (4.8-10.8)
[2024-10-17 14:00] LABS: ALT (SGPT) 18 U/L (0-50); AST (SGOT) 25 U/L (17-59); Albumin 3.7 g/dl (3.5-5.0); Alkaline Phosphatase 51 U/L (38-126); Blood Urea Nitrogen 21 mg/dl (9-20); Calcium 9.4 mg/dl (8.4-10.2); Carbon Dioxide 32 mmol/L (22-30); Chloride 107 mmol/L (98-107); Glucose 65 mg/dl (70-99); Potassium 4.7 mmol/L (3.5-5.1); Sodium 142 mmol/L (135-145); Total Bilirubin 0.5 mg/dl (0.2-1.3); Total Protein 5.7 g/dl (6.3-8.2); eGFR > 60.00
[2024-10-17 16:21] LABS: TSH Reflex To Free T4 3.53 uIU/ml (0.47-4.68)
== END ==
LOC: REG 10:11
PROVIDERS: ATTENDING PHYSICIAN Internal Medicine Hematology & Oncology; FAMILY PHYSICIAN Family Medicine
DX: C76.0 Malignant neoplasm of head, face and neck (principal); C77.0 Secondary and unspecified malignant neoplasm of lymph nodes of head, face and neck; Z79.899 Other long term (current) drug therapy; D03.9 Melanoma in situ, unspecified
CPT/HCPCS: 36415; 80053; 84443; 85025

== ENCOUNTER → 2024-11-07 09:51 | Outpatient (REF) | payer MEDICARE, OTHER, SELFPAY ==
[2024-11-07 10:49] LABS: Hematocrit 41.8 % (39.0-52.0); Hemoglobin 14.7 g/dL (13.0-18.0); Mean Corp Hgb Conc. 35.2 g/dL (33.0-37.0); Mean Corpuscular Volume 92.7 fL (80.0-94.0); Nucleated Red Blood Cells % 0 % (-); Platelet Count 177 10^3/uL (130-400); Red Cell Dist. Width 13.2 % (11.5-14.5)
[2024-11-07 11:41] LABS: AST (SGOT) 24 U/L (17-59); Albumin 3.3 g/dl (3.5-5.0); Alkaline Phosphatase 45 U/L (38-126); Blood Urea Nitrogen 27 mg/dl (9-20); Carbon Dioxide 31 mmol/L (22-30); Chloride 108 mmol/L (98-107); Glucose 86 mg/dl (70-99); Potassium 4.3 mmol/L (3.5-5.1); Sodium 140 mmol/L (135-145); Total Protein 5.4 g/dl (6.3-8.2); eGFR > 60.00
[2024-11-07 11:53] LABS: ALT (SGPT) 15 U/L (0-50); Calcium 9.0 mg/dl (8.4-10.2)
== END ==
LOC: REG 09:51
PROVIDERS: ATTENDING PHYSICIAN Internal Medicine Hematology & Oncology; FAMILY PHYSICIAN Family Medicine
DX: C76.0 Malignant neoplasm of head, face and neck (principal); C77.0 Secondary and unspecified malignant neoplasm of lymph nodes of head, face and neck; Z79.899 Other long term (current) drug therapy; E03.9 Hypothyroidism, unspecified
CPT/HCPCS: 36415; 80053; 84443; 85025

== ENCOUNTER → 2024-11-28 11:18 | Outpatient (REF) | payer MEDICARE, OTHER, SELFPAY ==
[2024-11-28 12:23] LABS: Hematocrit 42.3 % (39.0-52.0); Hemoglobin 14.5 g/dL (13.0-18.0); Mean Corp Hgb Conc. 34.3 g/dL (33.0-37.0); Mean Corpuscular Volume 95.3 fL (80.0-94.0); Nucleated Red Blood Cells % 0 % (-); Platelet Count 173 10^3/uL (130-400); Red Cell Dist. Width 13.0 % (11.5-14.5)
[2024-11-28 13:25] LABS: ALT (SGPT) 14 U/L (0-50); AST (SGOT) 23 U/L (17-59); Albumin 3.6 g/dl (3.5-5.0); Alkaline Phosphatase 47 U/L (38-126); Blood Urea Nitrogen 21 mg/dl (9-20); Calcium 9.1 mg/dl (8.4-10.2); Carbon Dioxide 34 mmol/L (22-30); Chloride 105 mmol/L (98-107); Glucose 92 mg/dl (70-99); Potassium 4.8 mmol/L (3.5-5.1); Sodium 141 mmol/L (135-145); Total Protein 5.4 g/dl (6.3-8.2); eGFR > 60.00
== END ==
LOC: REG 11:18
PROVIDERS: ATTENDING PHYSICIAN Internal Medicine Hematology & Oncology; FAMILY PHYSICIAN Family Medicine
DX: C76.0 Malignant neoplasm of head, face and neck (principal); C77.0 Secondary and unspecified malignant neoplasm of lymph nodes of head, face and neck; Z79.899 Other long term (current) drug therapy; E03.9 Hypothyroidism, unspecified
CPT/HCPCS: 36415; 80053; 84443; 85025

== ENCOUNTER → 2024-12-20 13:01 | Outpatient (REF) | payer MEDICARE, OTHER, SELFPAY ==
[2024-12-20 14:36] LABS: Hematocrit 42.3 % (39.0-52.0); Hemoglobin 14.6 g/dL (13.0-18.0); Mean Corp Hgb Conc. 34.5 g/dL (33.0-37.0); Mean Corpuscular Volume 94.4 fL (80.0-94.0); Nucleated Red Blood Cells % 0 % (-); Platelet Count 151 10^3/uL (130-400); Red Cell Dist. Width 12.9 % (11.5-14.5)
[2024-12-20 15:04] LABS: ALT (SGPT) 19 U/L (0-50); AST (SGOT) 37 U/L (17-59); Albumin 3.4 g/dl (3.5-5.0); Alkaline Phosphatase 51 U/L (38-126); Blood Urea Nitrogen 26 mg/dl (9-20); Calcium 8.9 mg/dl (8.4-10.2); Carbon Dioxide 31 mmol/L (22-30); Chloride 103 mmol/L (98-107); Glucose 77 mg/dl (70-99); Potassium 4.4 mmol/L (3.5-5.1); Sodium 138 mmol/L (135-145); Total Protein 5.2 g/dl (6.3-8.2); eGFR > 60.00
== END ==
LOC: REG 13:01
PROVIDERS: ATTENDING PHYSICIAN Internal Medicine Hematology & Oncology; FAMILY PHYSICIAN Family Medicine
DX: C76.0 Malignant neoplasm of head, face and neck (principal); C77.0 Secondary and unspecified malignant neoplasm of lymph nodes of head, face and neck; Z79.899 Other long term (current) drug therapy; E03.9 Hypothyroidism, unspecified
CPT/HCPCS: 36415; 80053; 84443; 85025

== ENCOUNTER → 2025-01-09 11:20 | Outpatient (REF) | payer MEDICARE, OTHER, SELFPAY ==
[2025-01-09 13:18] LABS: Hematocrit 41.9 % (39.0-52.0); Hemoglobin 14.3 g/dL (13.0-18.0); Mean Corp Hgb Conc. 34.1 g/dL (33.0-37.0); Mean Corpuscular Volume 94.2 fL (80.0-94.0); Nucleated Red Blood Cells % 0 % (-); Platelet Count 171 10^3/uL (130-400); Red Cell Dist. Width 12.8 % (11.5-14.5)
[2025-01-09 13:59] LABS: ALT (SGPT) 17 U/L (0-50); AST (SGOT) 25 U/L (17-59); Albumin 3.2 g/dl (3.5-5.0); Alkaline Phosphatase 44 U/L (38-126); Blood Urea Nitrogen 23 mg/dl (9-20); Calcium 9.2 mg/dl (8.4-10.2); Carbon Dioxide 33 mmol/L (22-30); Chloride 103 mmol/L (98-107); Glucose 81 mg/dl (70-99); Potassium 4.3 mmol/L (3.5-5.1); Sodium 138 mmol/L (135-145); Total Protein 5.2 g/dl (6.3-8.2); eGFR > 60.00
== END ==
LOC: REG 11:20
PROVIDERS: ATTENDING PHYSICIAN Internal Medicine Hematology & Oncology; FAMILY PHYSICIAN Family Medicine
DX: C76.0 Malignant neoplasm of head, face and neck (principal); C77.0 Secondary and unspecified malignant neoplasm of lymph nodes of head, face and neck; Z79.899 Other long term (current) drug therapy; E03.9 Hypothyroidism, unspecified
CPT/HCPCS: 36415; 80053; 84439; 84443; 85025

== ENCOUNTER → 2025-01-30 10:40 | Outpatient (REF) | payer MEDICARE, OTHER, SELFPAY ==
[2025-01-30 11:46] LABS: Hematocrit 42.2 % (39.0-52.0); Hemoglobin 14.6 g/dL (13.0-18.0); Mean Corp Hgb Conc. 34.6 g/dL (33.0-37.0); Mean Corpuscular Volume 94.6 fL (80.0-94.0); Nucleated Red Blood Cells % 0 % (-); Platelet Count 167 10^3/uL (130-400); Red Cell Dist. Width 12.8 % (11.5-14.5)
[2025-01-30 12:32] LABS: ALT (SGPT) 20 U/L (0-50); AST (SGOT) 30 U/L (17-59); Albumin 3.4 g/dl (3.5-5.0); Alkaline Phosphatase 44 U/L (38-126); Blood Urea Nitrogen 25 mg/dl (9-20); Calcium 8.9 mg/dl (8.4-10.2); Carbon Dioxide 33 mmol/L (22-30); Chloride 104 mmol/L (98-107); Glucose 93 mg/dl (70-99); Potassium 4.2 mmol/L (3.5-5.1); Sodium 139 mmol/L (135-145); Total Protein 5.3 g/dl (6.3-8.2); eGFR > 60.00
== END ==
LOC: REG 10:40
PROVIDERS: ATTENDING PHYSICIAN Internal Medicine Hematology & Oncology; FAMILY PHYSICIAN Family Medicine
DX: C76.0 Malignant neoplasm of head, face and neck (principal); C77.0 Secondary and unspecified malignant neoplasm of lymph nodes of head, face and neck; Z79.899 Other long term (current) drug therapy; E03.9 Hypothyroidism, unspecified
CPT/HCPCS: 36415; 80053; 84439; 84443; 85025

== ENCOUNTER → 2025-02-20 09:58 | Outpatient (REF) | payer MEDICARE, OTHER, SELFPAY ==
[2025-02-20 11:19] LABS: Hematocrit 44.5 % (39.0-52.0); Hemoglobin 14.8 g/dL (13.0-18.0); Mean Corp Hgb Conc. 33.3 g/dL (33.0-37.0); Mean Corpuscular Volume 96.9 fL (80.0-94.0); Nucleated Red Blood Cells % 0 % (-); Platelet Count 157 10^3/uL (130-400); Red Cell Dist. Width 13.2 % (11.5-14.5)
[2025-02-20 11:47] LABS: ALT (SGPT) 19 U/L (0-50); AST (SGOT) 27 U/L (17-59); Albumin 3.2 g/dl (3.5-5.0); Alkaline Phosphatase 49 U/L (38-126); Blood Urea Nitrogen 25 mg/dl (9-20); Calcium 8.8 mg/dl (8.4-10.2); Carbon Dioxide 33 mmol/L (22-30); Chloride 105 mmol/L (98-107); Glucose 98 mg/dl (70-99); HDL Cholesterol 48 mg/dl; LDL Cholesterol, Calculated 99 mg/dl; Potassium 4.5 mmol/L (3.5-5.1); Sodium 139 mmol/L (135-145); Total Protein 5.3 g/dl (6.3-8.2); Very Low Density Lipoprotein 13 mg/dl (0-30); eGFR > 60.00
== END ==
LOC: REG 09:58
PROVIDERS: ATTENDING PHYSICIAN Internal Medicine Hematology & Oncology; FAMILY PHYSICIAN Family Medicine
DX: C76.0 Malignant neoplasm of head, face and neck (principal); C77.0 Secondary and unspecified malignant neoplasm of lymph nodes of head, face and neck; Z79.899 Other long term (current) drug therapy; E03.9 Hypothyroidism, unspecified
CPT/HCPCS: 36415; 80053; 80061; 84443; 85025

== ENCOUNTER → 2025-02-27 07:47 | Outpatient (REF) | payer MEDICARE, OTHER, SELFPAY | LOC: RAD 07:47 | PROVIDERS: ATTENDING PHYSICIAN Internal Medicine Hematology & Oncology; FAMILY PHYSICIAN Family Medicine | DX: C76.0 Malignant neoplasm of head, face and neck (principal); C77.0 Secondary and unspecified malignant neoplasm of lymph nodes of head, face and neck; Z79.899 Other long term (current) drug therapy; E03.9 Hypothyroidism, unspecified | CPT/HCPCS: 71260; 74177; Q9967 ==

== ENCOUNTER → 2025-03-13 10:00 | Outpatient (REF) | payer MEDICARE, OTHER, SELFPAY ==
[2025-03-13 11:20] LABS: Hematocrit 44.9 % (39.0-52.0); Hemoglobin 15.3 g/dL (13.0-18.0); Mean Corp Hgb Conc. 34.1 g/dL (33.0-37.0); Mean Corpuscular Volume 94.1 fL (80.0-94.0); Nucleated Red Blood Cells % 0 % (-); Platelet Count 174 10^3/uL (130-400); Red Cell Dist. Width 13.2 % (11.5-14.5)
[2025-03-13 11:45] LABS: ALT (SGPT) 20 U/L (0-50); AST (SGOT) 26 U/L (17-59); Albumin 3.3 g/dl (3.5-5.0); Alkaline Phosphatase 45 U/L (38-126); Blood Urea Nitrogen 21 mg/dl (9-20); Calcium 9.0 mg/dl (8.4-10.2); Carbon Dioxide 33 mmol/L (22-30); Chloride 102 mmol/L (98-107); Glucose 88 mg/dl (70-99); Potassium 4.5 mmol/L (3.5-5.1); Sodium 136 mmol/L (135-145); Total Protein 5.4 g/dl (6.3-8.2); eGFR > 60.00
== END ==
LOC: REG 10:00
PROVIDERS: ATTENDING PHYSICIAN Internal Medicine Hematology & Oncology; FAMILY PHYSICIAN Family Medicine
DX: C76.0 Malignant neoplasm of head, face and neck (principal); C77.0 Secondary and unspecified malignant neoplasm of lymph nodes of head, face and neck; Z79.899 Other long term (current) drug therapy; E03.9 Hypothyroidism, unspecified
CPT/HCPCS: 36415; 80053; 84443; 85025

== ENCOUNTER → 2025-04-04 09:42 | Outpatient (REF) | payer MEDICARE, OTHER, SELFPAY ==
[2025-04-04 10:24] LABS: Hematocrit 45.8 % (39.0-52.0); Hemoglobin 15.2 g/dL (13.0-18.0); Mean Corp Hgb Conc. 33.2 g/dL (33.0-37.0); Mean Corpuscular Volume 95.4 fL (80.0-94.0); Nucleated Red Blood Cells % 0 % (-); Platelet Count 165 10^3/uL (130-400); Red Cell Dist. Width 13.2 % (11.5-14.5)
[2025-04-04 10:54] LABS: ALT (SGPT) 17 U/L (0-50); AST (SGOT) 24 U/L (17-59); Albumin 3.3 g/dl (3.5-5.0); Alkaline Phosphatase 41 U/L (38-126); Blood Urea Nitrogen 25 mg/dl (9-20); Calcium 8.9 mg/dl (8.4-10.2); Carbon Dioxide 34 mmol/L (22-30); Chloride 102 mmol/L (98-107); Glucose 68 mg/dl (70-99); Potassium 4.1 mmol/L (3.5-5.1); Sodium 137 mmol/L (135-145); Total Protein 5.5 g/dl (6.3-8.2); eGFR > 60.00
== END ==
LOC: REG 09:42
PROVIDERS: ATTENDING PHYSICIAN Internal Medicine Hematology & Oncology; FAMILY PHYSICIAN Family Medicine
DX: C76.0 Malignant neoplasm of head, face and neck (principal); C77.0 Secondary and unspecified malignant neoplasm of lymph nodes of head, face and neck; Z79.899 Other long term (current) drug therapy; E03.9 Hypothyroidism, unspecified
CPT/HCPCS: 36415; 80053; 84443; 85025

== ENCOUNTER → 2025-04-24 09:18 | Outpatient (REF) | payer MEDICARE, OTHER, SELFPAY ==
[2025-04-24 10:55] LABS: Hematocrit 43.5 % (39.0-52.0); Hemoglobin 15.1 g/dL (13.0-18.0); Mean Corp Hgb Conc. 34.7 g/dL (33.0-37.0); Mean Corpuscular Volume 94.6 fL (80.0-94.0); Nucleated Red Blood Cells % 0 % (-); Platelet Count 168 10^3/uL (130-400); Red Cell Dist. Width 13.0 % (11.5-14.5)
[2025-04-24 12:36] LABS: ALT (SGPT) 15 U/L (0-50); AST (SGOT) 23 U/L (17-59); Albumin 3.3 g/dl (3.5-5.0); Alkaline Phosphatase 44 U/L (38-126); Blood Urea Nitrogen 22 mg/dl (9-20); Calcium 9.0 mg/dl (8.4-10.2); Carbon Dioxide 32 mmol/L (22-30); Chloride 104 mmol/L (98-107); Glucose 79 mg/dl (70-99); Potassium 4.5 mmol/L (3.5-5.1); Sodium 138 mmol/L (135-145); Total Protein 5.3 g/dl (6.3-8.2); eGFR > 60.00
== END ==
LOC: REG 09:18
PROVIDERS: ATTENDING PHYSICIAN Internal Medicine Hematology & Oncology; FAMILY PHYSICIAN Family Medicine
DX: C76.0 Malignant neoplasm of head, face and neck (principal); C77.0 Secondary and unspecified malignant neoplasm of lymph nodes of head, face and neck; Z79.899 Other long term (current) drug therapy; E03.9 Hypothyroidism, unspecified
CPT/HCPCS: 36415; 80053; 84443; 85025